=== PATIENT | male | born 1960 | race African-American/Black ===

== ENCOUNTER 2017-05-21 08:44 | Emergency (ER) | payer OTHER ==
[2017-05-21] MEDS ORDERED: ACETAMINOPHEN 325 MG TABLET PO ONE (09:35)
[2017-05-21] MEDS ORDERED: ACETAMINOPHEN 325 MG TABLET ONE (09:39)
[2017-05-21] MEDS ORDERED: NORMAL SALINE 1000 ML 1,000 ML IV ONE ×2 (10:09→12:06)
[2017-05-21] MEDS ORDERED: CLINDAMYCIN 900 MG/D5W RTU 50 ML IV ONE (10:11)
[2017-05-21 10:31] LABS: HEMATOCRIT 39.1 % (37.9-51.0); HEMOGLOBIN 12.8 g/dL (13.5-17.0); HGB HCT DIFFERENCE -0.7; MEAN CORPUSCULAR HEMOGLOBIN 27.8 pg (27.0-33.4); MEAN CORPUSCULAR HGB CONC 32.9 g/dL (32.0-36.0); MEAN CORPUSCULAR VOLUME 85 fl (80-97); RED BLOOD COUNT 4.61 10^6/uL (4.35-5.55); RED CELL DISTRIBUTION WIDTH 14.1 % (11.5-14.0); WHITE BLOOD COUNT 6.7 10^3/uL (4.0-10.5)
[2017-05-21 10:53] LABS: ALANINE AMINOTRANSFERASE 26 U/L (21-72); ALBUMIN 3.4 g/dL (3.5-5.0); ALKALINE PHOSPHATASE 77 U/L (38-126); ANION GAP 10 (5-19); ASPARTATE AMINO TRANSFERASE 28 U/L (17-59); BILIRUBIN,DIRECT 0.3 mg/dL (0.0-0.4); BILIRUBIN,TOTAL 0.6 mg/dL (0.2-1.3); BLOOD UREA NITROGEN 6 mg/dL (7-20); CALCIUM 8.7 mg/dL (8.4-10.2); CARBON DIOXIDE 27 mmol/L (22-30); CHLORIDE 97 mmol/L (98-107); CREATININE RESULT 0.73 mg/dL (0.52-1.25); GLUCOSE 97 mg/dL (75-110); LIPASE 79.9 U/L (23-300); POTASSIUM 3.7 mmol/L (3.6-5.0)
[2017-05-21 11:23] LABS: APPEARANCE,URINE CLEAR; BILIRUBIN,URINE NEGATIVE (NEGATIVE); GLUCOSE, URINE NEGATIVE (NEGATIVE); KETONES,URINE 80 mg/dL (NEGATIVE); LEUKOCYTE ESTERASE,URINE NEGATIVE (NEGATIVE); NITRITE,URINE NEGATIVE (NEGATIVE); PROTEIN,URINE 100 mg/dL (NEGATIVE); URINE SPECIFIC GRAVITY 1.026
--- NOTE | 2017-05-21 12:13 | RADIOLOGY REPORT (SQ) ---
EXAM DESCRIPTION: CHEST PA/LAT COMPLETED DATE/TIME: 05/21/2017 11:41 am REASON FOR STUDY: fever COMPARISON: None. EXAM PARAMETERS: NUMBER OF VIEWS: two views TECHNIQUE: Digital Frontal and Lateral radiographic views of the chest acquired. RADIATION DOSE: NA LIMITATIONS: none FINDINGS: LUNGS AND PLEURA: No opacities, masses or pneumothorax. No pleural effusion. MEDIASTINUM AND HILAR STRUCTURES: No masses or contour abnormalities. HEART AND VASCULAR STRUCTURES: Heart normal size. No evidence for failure. BONES: No acute findings. HARDWARE: None in the chest. OTHER: No other significant finding. IMPRESSION: NO SIGNIFICANT RADIOGRAPHIC FINDING IN THE CHEST. TECHNICAL DOCUMENTATION: JOB ID: [id number] [employer]- All Rights Reserved
--- NOTE | 2017-05-21 12:56 | ER Document Report ---
ED General - General Chief Complaint: Fever Stated Complaint: FEVER Time Seen by Provider: 05/21/17 09:48 TRAVEL OUTSIDE OF THE [place] IN LAST 30 DAYS: No - HPI Patient complains to provider of: Sore throat fever Notes: Patient coming in for evaluation of fever. States your ongoing for approximately 6 days. Patient was seen at a local urgent care primary care office diagnosis pharyngitis was told to come to the ER for further evaluation and IV antibiotics. Patient states pain with swallowing however no difficulty breathing no trouble swallowing his own secretions. Patient does complain of myalgias. Patient denies any recent travel denies any sick contacts. Patient states he did not receive a flu shot this year. Otherwise patient does not have any other past medical problems except for hypertension. Patient states he has been taking Tylenol Motrin at home for his symptoms. Patient also states approximately last 48 hours he developed redness and swelling to left side of face. Patient has had obvious redness swelling along the nasolacrimal duct on the left side. Denies dental pain - Related Data Allergies/Adverse Reactions: No Known Allergies Allergy (Verified 05/21/17 08:46) Past Medical History - Social History Smoking Status: Current Every Day Smoker Chew tobacco use (# tins/day): No Frequency of alcohol use: None Drug Abuse: None Family History: Reviewed & Not Pertinent Patient has suicidal ideation: No Patient has homicidal ideation: No - Past Medical History Cardiac Medical History: Reports: Hx Hypertension - had some htn while in [place] not treated Renal/ Medical History: Denies: Hx Peritoneal Dialysis Review of Systems - Review of Systems Constitutional: Fever EENT: Throat pain Cardiovascular: No symptoms reported Respiratory: No symptoms reported Gastrointestinal: No symptoms reported Genitourinary: No symptoms reported Male Genitourinary: No symptoms reported Musculoskeletal: No symptoms reported Skin: No symptoms reported Hematologic/Lymphatic: No symptoms reported Neurological/Psychological: No symptoms reported -: Yes All other systems reviewed and negative Physical Exam - Vital signs Vitals: Temp Pulse Resp BP Pulse Ox 102.9 F H 103 H 20 145/93 H 98 05/21/17 08:46 05/21/17 08:46 05/21/17 08:46 05/21/17 08:46 05/21/17 08:46 Interpretation: Febrile - General General appearance: Appears well, Alert - HEENT Head: Normocephalic, Atraumatic Eyes: Normal Pupils: PERRL Ears: Normal External canal: Normal Tympanic membrane: Normal Sinus: Normal Nasal: Normal Mouth/Lips: Normal Pharynx: Erythema Neck: Normal Notes: Patient no longer is no pain to percussion no signs of dental infection no dental caries Patient with erythema redness along left side of the face inferior to the left orbit along the zygomatic arch with most prominent along the track of the nasolacrimal duct. Upon pressing on the erythema there is no fluctuance but a scant amount of purulent material can be expressed along the epicanthal region at the origin of the nasolacrimal duct - Respiratory Respiratory status: No respiratory distress Chest status: Nontender Breath sounds: Normal Chest palpation: Normal - Cardiovascular Rhythm: Regular Heart sounds: Normal auscultation Murmur: No - Abdominal Inspection: Normal Distension: No distension Bowel sounds: Normal Tenderness: Nontender Organomegaly: No organomegaly - Back Back: Normal, Nontender - Extremities General upper extremity: Normal inspection, Nontender, Normal color, Normal ROM , Normal temperature General lower extremity: Normal inspection, Nontender, Normal color, Normal ROM , Normal temperature, Normal weight bearing. No: Sherry's sign - Neurological Neuro grossly intact: Yes Cognition: Normal Orientation: AAOx4 Alex Coma Scale Eye Opening: Spontaneous Traver Coma Scale Verbal: Oriented Alex Coma Scale Motor: Obeys Commands Alex Coma Scale Total: 15 Speech: Normal Motor strength normal: LUE, RUE, LLE, RLE Sensory: Normal - Psychological Associated symptoms: Normal affect, Normal mood - Skin Skin Temperature: Warm Skin Moisture: Dry Skin Color: Normal Course - Re-evaluation Re-evalutation: 05/21/17 14:33 Patient level does not show any critical pathology. Examination patient does reveal a redness and tenderness swelling along the side of the face goes along the nasal lacrimal duct with expression of some purulent material in the medial epicanthal region upon pressing the erythema. Nose shows any fluctuance no signs of abscess formation patient has extraocular motions intact there are nonpainful. No dental infection more consistent with possible nasolacrimal duct infection and underlying cellulitic process. Possibility region the patient's fever. Patient was started on clindamycin encouraged follow-up with PCP. Patient also was given Magic mouthwash for pain control encouraged to use Tylenol Motrin for fever and pain control as well. - Vital Signs Vital signs: Temp Pulse Resp BP Pulse Ox 98.0 F 80 18 129/87 H 98 05/21/17 12:50 05/21/17 12:50 05/21/17 12:50 05/21/17 12:50 05/21/17 12:50 - Laboratory Result Diagrams: 05/21/17 10:19 05/21/17 10:19 Laboratory results interpreted by me: 05/21/17 05/21/17 05/21/17 10:19 10:19 10:55 Hgb 12.8 L RDW 14.1 H Sodium 134.0 L Chloride 97 L BUN 6 L Albumin 3.4 L Urine Protein 100 H Urine Ketones 80 H Urine Urobilinogen 4.0 H Urine Ascorbic Acid 40 H Discharge - Discharge Clinical Impression: Fever Qualifiers: Fever type: unspecified Qualified Code(s): R50.9 - Fever, unspecified Dacryocystitis Qualifiers: Laterality: left Qualified Code(s): H04.302 - Unspecified dacryocystitis of left lacrimal passage Condition: Good Disposition: HOME, SELF-CARE Instructions: Fever ([facility]) Additional Instructions: Your workup today shows no signs of strep infection mono infection pneumonia. I do believe her fever may be coming from an infection of the skin underneath the left eye or a nasolacrimal duct infection. The antibiotic that we prescribed clindamycin to take care of this infection. Please follow-up with your primary care physician. Return to the ER symptoms worsen. He may take Tylenol and Motrin alternating every 4 hours for fever and pain control. He may also use the Magic mouthwash for throat pain Prescriptions: Magic Mouthwash 5 ml PO Q6 PRN #120 PRN Reason: Clindamycin HCl [Cleocin HCl] 150 mg PO Q6 10 Days Forms: Return to Work Referrals: JANI BAI MD [Primary Care Provider] - Follow up as needed
[2017-05-21 13:39] VITALS: BP 129/87
== END 2017-05-21 13:30 | disposition home or self-care (01) ==
LOC: ER 08:44
DX: R50.9 Fever, unspecified (principal); H04.302 Unspecified dacryocystitis of left lacrimal passage; F17.200 Nicotine dependence, unspecified, uncomplicated
CPT/HCPCS: 99284; 96365; 36415; 87040; 87070; 87086; 87880; 83690; 85027; 86308; 80053; 81001; 87804; 71020; J7030

== ENCOUNTER 2018-04-02 12:51 | Emergency (ER) | payer OTHER ==
--- NOTE | 2018-04-02 13:56 | RADIOLOGY REPORT (SQ) ---
EXAM DESCRIPTION: HIP LEFT AP/LATERAL COMPLETED DATE/TIME: 04/02/2018 1:33 pm REASON FOR STUDY: fall COMPARISON: None. NUMBER OF VIEWS: Two views. TECHNIQUE: AP and frog-leg view of the left hip. LIMITATIONS: None. FINDINGS: MINERALIZATION: Normal. LEFT HIP: No fracture or dislocation. No worrisome bone lesions. OPPOSITE HIP: No fracture or dislocation. No worrisome bone lesions. SOFT TISSUES: No findings. OTHER: No other significant finding. IMPRESSION: NEGATIVE STUDY OF THE LEFT HIP. NO RADIOGRAPHIC EVIDENCE OF ACUTE INJURY. TECHNICAL DOCUMENTATION: JOB ID: [id number] [employer]- All Rights Reserved Reading location - IP/workstation name: [email or web address]
[2018-04-02] MEDS ORDERED: LIDOCAINE 5% (700 MG) TRANSDERMAL ADH..PATCH TP ONE (14:19)
[2018-04-02] MEDS ORDERED: OXYCODONE-ACETAMINOPHEN 5-325 MG TABLET PO ONE (14:19)
[2018-04-02] MEDS ORDERED: ONDANSETRON 4 MG TAB.RAPDIS PO ONE (14:19)
--- NOTE | 2018-04-02 15:47 | RADIOLOGY REPORT (SQ) ---
EXAM DESCRIPTION: L SPINE WHOLE COMPLETED DATE/TIME: 04/02/2018 3:20 pm REASON FOR STUDY: fall COMPARISON: None. NUMBER OF VIEWS: Five views including obliques. TECHNIQUE: AP, lateral, oblique, and sacral radiographic images acquired of the lumbar spine. LIMITATIONS: None. FINDINGS: MINERALIZATION: Normal. SEGMENTATION: Normal. No transitional anatomy. ALIGNMENT: Normal. VERTEBRAE: Maintained height. No fracture or worrisome bone lesion. DISCS: Preserved height. No significant osteophytes or end plate irregularity. POSTERIOR ELEMENTS: Pedicles and facets are intact. No pars defect or posterior arch defects. HARDWARE: None in the spine. PARASPINAL SOFT TISSUES: Normal. PELVIS: Intact as visualized. No fractures or worrisome bone lesions. SI joints intact. OTHER: No other significant finding. IMPRESSION: No significant vertebral compression or disc space reduction is seen. No evidence for f racture is seen. Other findings as noted above TECHNICAL DOCUMENTATION: JOB ID: [id number] [employer]- All Rights Reserved Reading location - IP/workstation name: [email or web address]
--- NOTE | 2018-04-02 16:12 | ER Document Report ---
ED General - General Chief Complaint: Fall Stated Complaint: FALL HIP PAIN Time Seen by Provider: 04/02/18 13:37 TRAVEL OUTSIDE OF THE [place] IN LAST 30 DAYS: No - HPI Patient complains to provider of: Fall Notes: Patient coming in for evaluation lower back pain and left hip pain. Patient states he was on a ladder coming off of the top rung when he fell landing on left side and injured his back. Patient states he was able to ambulate after the fall however does have significant back pain denies any fevers chills nausea vomiting diarrhea denies any numbness or tingling. Denies any bowel or bladder incontinence. Patient resting on his right side upon my evaluation. - Related Data Allergies/Adverse Reactions: No Known Allergies Allergy (Verified 05/21/17 08:46) Past Medical History - Social History Smoking Status: Never Smoker Family History: Reviewed & Not Pertinent Patient has suicidal ideation: No Patient has homicidal ideation: No - Past Medical History Cardiac Medical History: Reports: Hx Hypertension - had some htn while in [place] not treated Renal/ Medical History: Denies: Hx Peritoneal Dialysis Review of Systems - Review of Systems Constitutional: No symptoms reported EENT: No symptoms reported Cardiovascular: No symptoms reported Respiratory: No symptoms reported Gastrointestinal: No symptoms reported Genitourinary: No symptoms reported Male Genitourinary: No symptoms reported Musculoskeletal: Back pain Skin: No symptoms reported Hematologic/Lymphatic: No symptoms reported Neurological/Psychological: No symptoms reported -: Yes All other systems reviewed and negative Physical Exam - Vital signs Vitals: Temp Pulse Resp BP Pulse Ox 97.6 F 89 20 156/107 H 100 04/02/18 13:00 04/02/18 13:00 04/02/18 13:00 04/02/18 13:00 04/02/18 13:00 Interpretation: Normal - General General appearance: Appears well, Alert - HEENT Head: Normocephalic, Atraumatic Eyes: Normal Pupils: PERRL - Respiratory Respiratory status: No respiratory distress Chest status: Nontender Breath sounds: Normal Chest palpation: Normal - Cardiovascular Rhythm: Regular Heart sounds: Normal auscultation Murmur: No - Abdominal Inspection: Normal Distension: No distension Bowel sounds: Normal Tenderness: Nontender Organomegaly: No organomegaly - Back Back: Normal, Tender - Bilateral paraspinal tenderness along the midline tenderness of the L-spine. Patient also has minimal tenderness to the left hip. - Extremities General upper extremity: Normal inspection, Nontender, Normal color, Normal ROM , Normal temperature General lower extremity: Normal inspection, Nontender, Normal color, Normal ROM , Normal temperature, Normal weight bearing. No: Sherry's sign - Neurological Neuro grossly intact: Yes Cognition: Normal Orientation: AAOx4 [place] Coma Scale Eye Opening: Spontaneous Alex Coma Scale Verbal: Oriented Alex Coma Scale Motor: Obeys Commands Alex Coma Scale Total: 15 Speech: Normal Motor strength normal: LUE, RUE, LLE, RLE Sensory: Normal Knee - Reflex grade: 2 = Normal - Psychological Associated symptoms: Normal affect, Normal mood - Skin Skin Temperature: Warm Skin Moisture: Dry Skin Color: Normal Course - Re-evaluation Re-evalutation: 04/02/18 19:02 The patient presents with low back pain without signs of spinal cord compression , cauda equina syndrome, infection, aneurysm, or other serious etiology. The patient is neurologically intact. Given the extremely low risk of these diagnoses further testing and evaluation for these possibilities does not appear to be indicated at this time. The patient has been instructed to return if the symptoms worsen or change in any way. No acute traumatic findings. Patient also has no neurological findings deep tendon reflexes intact pulses intact. Patient was given pain control for home. Patient states and understands reasons to return to the ER - Vital Signs Vital signs: Temp Pulse Resp BP Pulse Ox 97.9 F 83 16 158/106 H 98 04/02/18 16:28 04/02/18 16:28 04/02/18 16:28 04/02/18 16:28 04/02/18 16:28 Discharge - Discharge Clinical Impression: Back pain Qualifiers: Back pain location: back pain in unspecified location Chronicity: unspecified Back pain laterality: unspecified Qualified Code(s): M54.9 - Dorsalgia, unspecified Hip pain Qualifiers: Laterality: unspecified laterality Qualified Code(s): M25.559 - Pain in unspecified hip Condition: Good Disposition: HOME, SELF-CARE Instructions: Anti-Inflammatory Medication ([facility]), Low Back Pain ([facility]), Oral Narcotic Medication ([facility]), Stretching Exercises for the Back ([facility]) Additional Instructions: Follow-up with your primary care physician in approximately 1 week. Your x- rays not show any signs of fracture. Your pain will continue more likely for approximately 48 hours and then gradually get better. Please do light activity. Return to ER symptoms worsen I would highly recommend taking Tylenol Motrin and if he needs the oxycodone prescribed altogether every 6-8 hours for pain relief for the next 24-48 hours. Prescriptions: Ibuprofen [Motrin 600 mg Tablet] 600 mg PO Q8HP PRN #90 tablet PRN Reason: Oxycodone HCl 5 mg PO Q6 #30 tablet Forms: Return to Work Referrals: JANI BAI MD [Primary Care Provider] - Follow up as needed
[2018-04-02 16:30] VITALS: BP 158/106
== END 2018-04-02 16:30 | disposition home or self-care (01) ==
LOC: ER 12:51
DX: M54.5 Low back pain (principal); M25.552 Pain in left hip; W11.XXXA Fall on and from ladder, initial encounter
CPT/HCPCS: 99283; 72110; 73502; S0119

== ENCOUNTER 2020-10-14 20:08 | Emergency (ER) | payer OTHER ==
[2020-10-14] MEDS ORDERED: DEXAMETHASONE SOD PHOSPHATE INJ 4 MG/1 ML VIAL IM ONE (20:57)
[2020-10-14] MEDS ORDERED: FAMOTIDINE 20 MG TABLET PO ONE (20:57)
--- NOTE | 2020-10-14 21:06 | ER Document Report ---
ED Skin Rash/Insect Bite/Abscs - General Chief Complaint: Hives Stated Complaint: FEVER, ABND BODY RASH Time Seen by Provider: 10/14/20 20:40 Primary Care Provider: JANI BAI MD [Primary Care Provider] - Follow up as needed Mode of Arrival: Ambulatory Information source: Patient Notes: 60-year-old male presented to ED for hives and itching for the last 5 to 6 weeks. He has been to see the doctor and was treated with prednisone. He states they did get better for a while but they came back. Patient states he has been high blood pressure today because he was taking medicine and did not take his blood pressure medicine this morning. He is supposed to be taking Coreg according to his who is a nurse. She states that she did get a Holter the doctor's office and she supposed to call Friday to get him an appointment with a loader for these hives. She states they did diagnose him with allergies but they do not know what he is allergic to. We will give him a shot of Decadron and start him on Pepcid. I did discuss with him and his that he needs to take Pepcid daily with his Zyrtec. He also knows that he needs to take his blood pressure as prescribed. His blood pressure manually is 128/88 and his pulse is 104 weekly. Constitutional: Negative for fever. HENT: Negative for sore throat. No swelling to the lips or throat noted. Eyes: Negative for visual changes. Cardiovascular: Negative for chest pain. Respiratory: Negative for shortness of breath. No difficulty swallowing no difficulty breathing no signs or symptoms of anaphylactic reaction Gastrointestinal: Negative for abdominal pain, vomiting or diarrhea. Genitourinary: Negative for dysuria. Musculoskeletal: Negative for back pain. Skin: Generalized hives Neurological: Negative for headaches, weakness or numbness. 10 point ROS negative except as marked above and in HPI. VITAL SIGNS: Within normal limits. GENERAL: No acute distress, non-toxic appearance. Signs or symptoms of anaphylactic reaction. He does have generalized hives. HEAD: Normal with no signs of head trauma. EYES: PERRLA, EOMI, conjunctiva normal, no discharge. EARS: Hearing grossly intact. NOSE: Normal. THROAT: Oropharynx is normal. NECK: Normal range of motion, no tenderness, supple, no lymphadenopathy, No adenopathy, no JVD. CHEST: Clear breath sounds bilaterally. No wheezes, rales, or rhonchi. CARDIAC: Regular rate and rhythm. S1 and S2, without murmurs, gallops, or rubs. VASCULAR: No Edema. Peripheral pulses normal and equal in all extremities. ABDOMEN: Normal and soft with no tenderness, no masses or pulsatile masses. GASTROINTESTINAL: Bowel sounds normal GENITOURINARY: Normal, No tenderness LYMPATHTIC: No lymphadenopathy noted. MUSCULOSKELETAL: Good range of motion of all major joints. Extremities without clubbing, cyanosis or edema. NEUROLOGICAL: Alert and oriented x 3. No focal sensory or strength deficits. Speech normal. Follows commands appropriately. PSYCHIATRIC: Normal Affect, judgement and mood. SKIN: Generalized hives no swelling to the lips mouth tongue, no airway compromise, no shortness of breath TRAVEL OUTSIDE OF THE [place] IN LAST 30 DAYS: No - HPI Patient complains to provider of: Other - Generalized has time between 4 to 6 weeks and the Onset: Other - 4 to 6 weeks Onset/Duration: Intermittent Quality of pain: No pain Severity: None Pain Level: Denies Skin Character: Urticarial - Labs Quality of rash: Itchy Identify cause: No Exacerbated by: Denies Relieved by: Denies Similar symptoms previously: Yes Recently seen / treated by doctor: Yes - Related Data Allergies/Adverse Reactions: No Known Allergies Allergy (Verified 05/21/17 08:46) Home Medications: coreg Past Medical History - General Information source: Patient - Social History Smoking Status: Current Some Day Smoker Frequency of alcohol use: None Drug Abuse: None Lives with: Family Family History: Reviewed & Not Pertinent Patient has suicidal ideation: No Patient has homicidal ideation: No - Past Medical History Cardiac Medical History: Reports: Hx Hypertension - had some htn while in [place] not treated Pulmonary Medical History: Reports: None EENT Medical History: Reports: None Neurological Medical History: Reports: None Endocrine Medical History: Reports: None Renal/ Medical History: Reports: None Malignancy Medical History: Reports None GI Medical History: Reports: None Musculoskeletal Medical History: Reports None Skin Medical History: Reports None Psychiatric Medical History: Reports: None Traumatic Medical History: Reports: None Infectious Medical History: Reports: None Surgical Hx: Negative Past Surgical History: Reports: None - Immunizations Immunizations up to date: Yes Hx Diphtheria, Pertussis, Tetanus Vaccination: Yes Physical Exam - Vital signs Vitals: Temp Pulse Resp BP Pulse Ox 98.3 F 119 H 20 139/103 H 98 10/14/20 20:44 10/14/20 20:44 10/14/20 20:44 10/14/20 20:44 10/14/20 20:44 Course - Vital Signs Vital signs: Temp Pulse Resp BP Pulse Ox 98.3 F 104 H 20 128/88 H 98 10/14/20 20:44 10/14/20 20:58 10/14/20 20:44 10/14/20 21:10 10/14/20 20:44 Discharge - Discharge Clinical Impression: Allergic urticaria Condition: Stable Disposition: HOME, SELF-CARE Additional Instructions: ACUTE ALLERGIC REACTION: Your symptoms are due to an allergic reaction. Allergy can cause hives, swelling of the hands, feet, and face, hoarseness, and difficulty swallowing or breathing. It may be due to exposure to medication, animal dander, foods, infection, or insect bites. Medication is a common cause, even when prior use of this same medication caused no problems. Acute treatment may include adrenalin and antihistamines. Usually, the specific allergic agent can't be identified unless repeated episodes occur. Home treatment includes the following: (1) Stop any suspicious medications. This will be discussed with you. (2) Oral antihistamines for the next four to five days. Example, diphenhydramine (Benadryl) every four hours. (3) You may also use cimetidine (Tagamet), ranitidine (Zantac), or famotidine (Pepcid) every four hours if diphenhydramine is not controlling itching and hives. (4) Avoid aspirin until the hives completely disappear. (5) Avoid hot baths or showers until the hives are completely gone. Call the doctor if faintness, difficulty swallowing, tightness in the chest, or wheezing occurs. STEROID MEDICATION INJECTION: You have been given an injection of medicine of the cortisone/steroid class. This medication is used to control inflammation or allergy. It is often continued as a pill for a short period of time, until the acute process subsides. There are usually no side effects from short-term use of cortisone-like medications. Some persons feel an increased sense of well-being and are not sleepy at bedtime. Long-term use of cortisone medications is best avoided, unless required for a severe condition. If your condition does not remit, or relapses after the course of corticosteroid medication, you should consult your physician. ACID-SUPPRESSING MEDICATION: You have a prescription for medicine which reduces the stomach's secretion of acid. Examples include Zantac, Tagament, and Pepcid. These drugs are often used to allow healing of ulcers or esophagitis. They may be needed to prevent recurrence of ulcers in some patients, or to prevent damage from acid reflux in the esophagus. Take all medication as prescribed, even after the pain is gone. Regular antacids may be added as needed if you have symptoms while taking this medicine. These medications sometimes are prescribed for allergic reactions because they have anti-histaminic effects and relieve the rash and itching of the reaction. There are usually no side effects from this medication. But, in rare cases and particularly in the elderly, serious problems can occur. Contact your doctor if there is fever, rash, hallucinations, confusion, or unusual bruising. Contact your doctor at once if you develop lightheadedness, black or bloody stool, or bloody vomitus. ANTIHISTAMINES: An antihistamine has been given and/or prescribed to control your symptoms. Antihistamines are used for many reasons, including itching, watering eyes, r unny nose, allergic swelling, hives, and insect stings. Antihistamines may cause drowsiness, especially with the first dose. Do not operate machinery or drive while under the effects of the medication. Other common side effects include dry mouth and eyes. In older persons, antihistamines can occasionally cause urinary retention, constipation, and trouble focusing the eyes. Do not combine the medication with alcohol, or with any other medication without talking to your doctor. FOLLOW-UP CARE: If you have been referred to a physician for follow-up care, call the physicians office for an appointment as you were instructed or within the next two days. If you experience worsening or a significant change in your symptoms, notify the physician immediately or return to the Emergency Department at any time for re-evaluation. Forms: Elevated Blood Pressure, Smoking Cessation Education Referrals: JANI BAI MD [Primary Care Provider] - Follow up as needed
[2020-10-14 21:11] VITALS: BP 128/88
== END 2020-10-14 21:28 | disposition home or self-care (01) ==
LOC: ER 20:08
DX: L50.0 Allergic urticaria (principal); R50.9 Fever, unspecified; R21 Rash and other nonspecific skin eruption; F17.200 Nicotine dependence, unspecified, uncomplicated; I10 Essential (primary) hypertension
CPT/HCPCS: 99284; 96372; J1100